=== PATIENT | male | born 1940 | race Caucasian/White ===

== ENCOUNTER 2018-09-21 14:48 | Emergency (ER) | payer MEDICARE ==
--- NOTE | 2018-09-21 15:48 | EDM.PDOC ---
ED HPI GENERAL MEDICAL PROBLEM - General Chief Complaint: Lower Extremity Injury/Pain Stated Complaint: PAIN IN LEG/ POST SURGERY Time Seen by Provider: 09/21/18 15:30 Source of Information: Reports: Patient, Family History Limitations: Reports: No Limitations - History of Present Illness INITIAL COMMENTS - FREE TEXT/NARRATIVE: 78-year-old male with localized pain in the lower leg just above the heel in the distal calf. Yesterday he had several prostate biopsies, and then had a long drive home in very poor weather. Today he was going down some stairs and developed a sharp sudden pain in the posterior calf, and he continues to ache and he was concerned about a blood clot. Onset: Sudden Duration: Hour(s): (Several hours) Location: Reports: Lower Extremity, Right Associated Symptoms: Reports: No Other Symptoms Right Lower Leg Pain Score (Numeric/FACES): 1 - Related Data Allergies Allergy/AdvReac Type Severity Reaction Status Date / Time No Known Allergies Allergy Verified 09/21/18 15:24 Home Meds: Home Meds Lisinopril 1 tab PO DAILY 09/21/18 [History] Tamsulosin HCl 1 tab PO DAILY 09/21/18 [History] amLODIPine [Norvasc] 1 tab PO DAILY 09/21/18 [History] Past Medical History HEENT History: Reports: Hard of Hearing, Impaired Vision Cardiovascular History: Reports: High Cholesterol, Hypertension Genitourinary History: Reports: BPH - Past Surgical History HEENT Surgical History: Reports: Tonsillectomy GI Surgical History: Reports: Appendectomy, Colonoscopy Male Surgical History: Reports: Other (See Below) Other Male Surgeries/Procedures: biopsy of prostate Musculoskeletal Surgical History: Reports: Shoulder Surgery Social & Family History - Tobacco Use Smoking Status *Q: Never Smoker - Recreational Drug Use Recreational Drug Use: No Review of Systems - Review of Systems Review Of Systems: See Below Constitutional: Denies: Fever Respiratory: Reports: No Symptoms Cardiovascular: Reports: No Symptoms GI/Abdominal: Reports: No Symptoms Genitourinary: Reports: Hematuria (Some residual hematuria from his procedure yesterday but improving) Musculoskeletal: Reports: Leg Pain Skin: Denies: Bruising, Erythema Neurological: Reports: No Symptoms ED EXAM, GENERAL - Physical Exam Exam: See Below Exam Limited By: No Limitations General Appearance: Alert, No Apparent Distress Respiratory/Chest: No Respiratory Distress Extremities: Other (Exam is otherwise limited to the lower extremities. He has a very focal tender spot at the distal gastrocnemius and proximal Achilles tendon area. There is no cords palpated, no edema or swelling, no bruising or erythema. There is slight increased pain with extension of the foot against resistance.) Course - Vital Signs Last Recorded V/S: Last Vital Signs Temp 95.7 F 09/21/18 15:19 Pulse 66 09/21/18 15:19 Resp 16 09/21/18 15:19 BP 160/91 H 09/21/18 15:19 Pulse Ox 98 09/21/18 15:19 - Re-Assessments/Exams Free Text/Narrative Re-Assessment/Exam: 09/21/18 15:46 This is not present as DVT pain but more of a musculoskeletal pain. He has had 3 doses of Levaquin in the last day which may have caused some tendon pain, but he has taken the last dose. He will recheck tomorrow if the pain is not improving or worsening. Departure - Departure Time of Disposition: 15:54 Disposition: Home, Self-Care 01 Condition: Good Clinical Impression: Achilles tendinitis, right leg - Discharge Information Instructions: Tendinitis, [id number] Referrals: Aguila Howell PA [Primary Care Provider] - Forms: ED Department Discharge Care Plan Goals: Increase activity as tolerated. Return if increased pain or swelling.
== END 2018-09-21 15:54 | disposition home or self-care (01) ==
LOC: JP.ED 14:48
DX: M76.61 Achilles tendinitis, right leg (principal); I10 Essential (primary) hypertension; E78.00 Pure hypercholesterolemia, unspecified; Z79.899 Other long term (current) drug therapy
CPT/HCPCS: 99283